=== PATIENT | male | born 1990 | race Caucasian/White ===

== ENCOUNTER 2016-07-05 14:35 | Outpatient (CLI) | payer OTHER, SELFPAY ==
[2016-07-05 15:06] LABS: Hemoglobin A1c 4.8 % (4.0-6.0)
[2016-07-05 15:14] LABS: ALT (SGPT) 41 U/L (0-55); AST (SGOT) 25 U/L (5-34); Alkaline Phosphatase 63 U/L (40-150); Anion Gap 17 mmol/L (10-20); BUN (Urea Nitrogen) 14 mg/dL (8.9-20.6); Bilirubin, Total 0.4 mg/dL (0.2-1.2); Calc. Creatinine Clearance 0 mL/min (70-130); Carbon Dioxide 23 mmol/L (22-29); Chloride 104 mmol/L (98-107); Estimated GFR-MDRD 73; Globulin 2.8 g/dL (2.4-3.5); Protein, Total 7.6 g/dL (6.0-8.3)
[2016-07-05 15:26] LABS: #Basophils 0.1 thou/uL (0.0-0.2); #Eosinphils 0.1 thou/uL (0.0-0.7); #Lymphocytes 1.8 thou/uL (1.20-3.40); #Monocytes 0.4 thou/uL (0.11-0.59); #Neutrophils 4.3 thou/uL (1.40-6.50); %Basophils 1.1 % (0.0-1.0); %Lymphocytes 26.4 % (21.0-51.0); %Monocytes 6.5 % (0.0-10.0); Hematocrit 46.8 % (42.0-52.0); Mean Platelet Volume 6.7 fL (7.4-10.4); Red Blood Cell (RBC) Count 5.59 mill/uL (4.70-6.10); White Blood Cell (WBC) Count 6.7 thou/uL (4.8-10.8)
[2016-07-06 17:00] LABS: Sex Hormone Binding Globulin 17.9 nmol/L (11-78); Testosterone, Free 98.1 pg/mL (47-244); Testosterone, Total 386.8 ng/dL (240-871)
== END 2016-07-05 14:36 | disposition home or self-care (01) ==
LOC: NAV SJFMSP 14:35
PROVIDERS: ATTEND Family Medicine
DX: R53.83 Other fatigue (principal)
CPT/HCPCS: 80053; 83036; 84270; 84403; 84439; 84443; 85025

== ENCOUNTER 2019-10-03 22:06 | Emergency (ER) | payer OTHER, SELFPAY ==
[2019-10-03] MEDS ORDERED: Ibuprofen 800 MG TAB ONE (22:22)
--- NOTE | 2019-10-03 23:15 | RAD ---
Exam:Left ankle 3 views HISTORY: Trauma. Pain. COMPARISON: None FINDINGS: Joint spaces. No fracture. Soft tissue swelling. IMPRESSION: Soft tissue swelling. No fracture.
== END 2019-10-03 23:35 | disposition home or self-care (01) ==
LOC: NAV ERS 22:06
DX: M25.472 Effusion, left ankle (principal); F32.9 Major depressive disorder, single episode, unspecified; Z87.891 Personal history of nicotine dependence; Z79.899 Other long term (current) drug therapy; W01.0XXA Fall on same level from slipping, tripping and stumbling without subsequent striking against object, initial encounter; Y92.009 Unspecified place in unspecified non-institutional (private) residence as the place of occurrence of the external cause